=== PATIENT | female | born 2000 | race Two or more races ===

== ENCOUNTER 2025-07-07 16:44 | Emergency (ER) | payer OTHER ==
[~2025-07-07] VITALS: Ht 152.4 cm; Wt 72.6 kg
[2025-07-07] MEDS ORDERED: KETOROLAC TROMETHAMINE 30 MG VIAL IM ONE (18:45)
[2025-07-07] MEDS ORDERED: IBUPROFEN600 MG PO (22:42)
== END 2025-07-07 23:15 | disposition home or self-care (01) ==
LOC: ER 16:44
DX: S89.81XA Other specified injuries of right lower leg, initial encounter (principal); V03.10XA Pedestrian on foot injured in collision with car, pick-up truck or van in traffic accident, initial encounter; Y93.89 Activity, other specified; Y92.89 Other specified places as the place of occurrence of the external cause; Y99.8 Other external cause status; E03.8 Other specified hypothyroidism; M79.661 Pain in right lower leg